=== PATIENT | female | born 1995 | race African-American/Black ===

== ENCOUNTER 2019-01-12 13:49 | Emergency (ER) | payer OTHER ==
[~2019-01-12] VITALS: Ht 172.7 cm; Wt 70.3 kg
[2019-01-12 15:23] VITALS: BP 114/67
== END 2019-01-12 15:25 | disposition home or self-care (01) ==
LOC: ER 13:49
DX: M25.462 Effusion, left knee (principal); Z88.2 Allergy status to sulfonamides
CPT/HCPCS: A4663